=== PATIENT | female | born 1985 | race Asian ===

== ENCOUNTER 2019-09-04 07:35 | Inpatient (IN) | payer OTHER ==
[2019-09-04] MEDS ORDERED: AMPICILLIN - 2 GM in SODIUM CHLORIDE 100 ML IVPB ONE (08:50)
--- NOTE | 2019-09-04 08:57 | HP ---
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: Alzheimer's, CVA, Dementia, Migraine, Multiple Sclerosis, Peripheral Neuropathy, Parkinson's, Seizure, Syncope, TIA, Vertigo, Other Cardiovascular: No: AFIB, Aneurysm, Aortic Insufficiency, Aortic Stenosis, CAD, CHF, Deep Vein Thrombosis, HTN, Hyperlipdemia, CA, Mitral Insufficiency, Mitral Stenosis, Murmur, Pulmonary Hypertension, Other Pulmonary: No: Asthma, Bronchitis, Cancer, COPD, O2 Dependent, Pneumonia, Previously Intubated, Pulmonary Embolus, Pulmonary Fibrosis, Sleep Apnea, Other Gastrointestinal: No: Ascites, Cancer, Constipation, Crohn's Disease, Diverticulitis, Diverticulosis, Esophageal Varices, Gastritis, GERD, GI Bleed, Hemorrhoids, Hiatal Hernia, Inflamatory Bowel Disease, Irritable Bowel Disease, Pancreatitis, Peptic Ulcer Disease, Ulcerative Colitis, Other Hepatobiliary: No: Cirrhosis, Cholelithiasis, Cholecystitis, Choledocholithiasis , Hepatitis A, Hepatitis B, Hepatitis C, Other Renal/: No: Renal Failure, Renal Inusuff, BPH, Cancer, Hematuria, Hemodialysis , Neurogenic Bladder, Renal Calculi, UTI, Other Reproductive: No: Ectopic , Endometriosis, Fibroids, PID, Polycystic Ovary Syndrome, Postmenopausal, Other Heme/Onc: No: Anemia, B12 Deficiency, Bleeding Disorder, Cancer, Current Chemotherapy, Current Radiation Therapy, Hemochromatosis, Hypercoaguable State, Myeloproliferative Synd, Sickle Cell Disease, Sickle Cell Trait, Thrombocytopenia, Other Infectious Disease: No: AIDS, C-Diff, Herpes Zoster, HIV, MRSA, STD's, Tuberculosis, VREF, Other Psych: No: Addictions, Anxiety, Bipolar, Depression, Panic, Psychosis, Schizophrenia, Other Musculoskeletal: No: Bursitis, Chronic low back pain, Hemiparesis, Hemiplegia, Osteoarthritis, Paraplegia, Other Rheumatology: No: Fibromyalgia, Gout, Lupus, Rheumatoid Arthritis, Sarcoidosis, Vasculitis, Other ENT: No: Allergic Rhinitis, Sinusitis, Other Endocrine: No: Fady's Disease, [place]'s Disease, Diabetes Insipidus, Diabetes Mellitus, Hyperparathyroidism, Hyperthyroidism, Hypothyroidism, Osteopenia, SIADH, Other Dermatology: No: Basal Cell, Cellulitis, Eczema, Melanoma, Psoriasis, Squamous Cell, Other - Past Surgical History Past Surgical History: Yes: None. No: AAA Repair, AICD, Amputation, Appendectomy, Arthrosocopy, AV Fistula/Graft, Bariatric Surgery, Breast Biopsy, Bypass, CABG, Carotid Endarterectomy, Cataract Removal, Cholecystectomy, Colectomy, Colonoscopy, Colostomy, Craniotomy, , Cystectomy, Hernia Repair, Hysterectomy, Ileal Conduit, Ileosotomy, Joint Replacement, Kidney Transplant, Laminectomy, Liver Transplant, Mastectomy, Nephrectomy, Oopherectomy , Orchiectomy, Permanent Pacemaker, Prostatectomy, Splenectomy, Stent, Thoracotomy, TURP, Tonsillectomy, Tubal Ligation, Upper Endoscopy, Valve Replacement, Vasectomy, Vein Stripping/Ligation Hx Myomectomy: No Hx Transabdominal Cerclage: No - Advance Directives Advance Directives: Yes: Living Will - Smoking History Smoking history: Never smoked Have you smoked in the past 12 months: No - Alcohol/Substance Use Hx Alcohol Use: No History of Substance Use: reports: None - Social History Usual Living Arrangement: Yes: With Significant Other Do you think of yourself as: Straight/Heterosexual ADL: Independent History of Recent Travel: No Home Medications - Allergies Allergies/Adverse Reactions: Allergies Allergy/AdvReac Type Severity Reaction Status Date / Time No Known Allergies Allergy Verified 09/03/19 11:32 - Home Medications Home Medications: Ambulatory Orders Prenat 115/Iron Fum/Folic/Dss [ 19 Tablet] 1 each PO DAILY 09/03/19 Family Medical History Family History: Denies Review of Systems - Review of Systems Constitutional: reports: No Symptoms Eyes: reports: No Symptoms HENT: reports: No Symptoms Neck: reports: No Symptoms Cardiovascular: reports: No Symptoms Respiratory: reports: No Symptoms Gastrointestinal: reports: No Symptoms Genitourinary: reports: No Symptoms Breasts: reports: No Symptoms Reported Musculoskeletal: reports: No Symptoms Integumentary: reports: No Symptoms Neurological: reports: No Symptoms Endocrine: reports: No Symptoms Hematology/Lymphatic: reports: No Symptoms Psychiatric: reports: No Symptoms Physical Exam - Maternity Constitutional: Yes: Well Nourished, No Distress, Calm Eyes: Yes: WNL, Conjunctiva Clear, EOM Intact HENT: Yes: WNL, Atraumatic, Normocephalic Neck: Yes: WNL, Supple, Trachea Midline Cardiovascular: Yes: WNL, Regular Rate and Rhythm Lungs: Clear to auscultation Breast(s): Yes: WNL - Abdominal Exam/OB Fundal Height: 36 Number of Fetuses: Single Presentation: Vertex Contractions: Yes Regularity: Regular Intensity: Moderate Monitor Mode: External Heart Rate Location: [facility] Category: I Accelerations: Uniform Decelerations: None - Vaginal Exam/OB Vaginal Bleediing: Light Speculum Exam: No Dilatation (cm): 4 Effacement (%): 80 Amniotic Membrane Status: Bulging Presentation: Vertex/Position Station: -2 - Physical Exam Musculoskeletal: Yes: WNL Extremities: Yes: WNL Edema: Yes Edema: LUE: 1+, RUE: 1+, LLE: 1+, RLE: 1+ Integumentary: Yes: WNL Deep Tendon Reflex Grade: Normal +2 ...Motor Strength: WNL Psychiatric: Yes: WNL, Alert, Oriented Hemorrhage Risk Assessment - Risk Factors Medium Risk Factors: Yes: None High Risk Factors: Yes: None Risk Score: 1 Risk Level: Medium Risk Assessment/Plan for laboring at 35 3/7 weeks, unstoppable laboring , [facility] integrated logistics programs director is informed
[2019-09-04] MEDS ORDERED: DEXTROSE 5%-LACTATED RINGERS 1,000 ML IV SCH (09:00)
[2019-09-04 09:30] VITALS: BMI 32.0
[2019-09-04] MEDS ORDERED: ELECTROLYTE-148 SOLN 1,000 ML IV SCH ×2 (10:00→10:30)
[2019-09-04 10:09] LABS: BASO % 0.1 % (0-2.0); EOS % 0.5 % (0-4.5); HEMATOCRIT 38.2 % (32.4-45.2); HEMOGLOBIN 13.3 GM/dL (10.7-15.3); LYMPH % 13.4 % (8-40); MCH 33.4 pg (25.7-33.7); MCHC 34.7 g/dl (32.0-36.0); MEAN CELL VOLUME 96.2 fl (80-96); MEAN PLT VOLUME 8.8 fl (7.5-11.1); MONO % 6.7 % (3.8-10.2); NEUT % 79.3 % (42.8-82.8); PLATELET COUNT 175 K/MM3 (134-434); RBC 3.97 M/mm3 (3.60-5.2); RDW 12.9 % (11.6-15.6); WHITE BLOOD COUNT 9.2 K/mm3 (4.0-10.0)
[2019-09-04 10:25] LABS: INR 0.96 (0.83-1.09); PROTHROMBIN TIME (PATIENT) 11.3 SEC (9.7-13.0)
[2019-09-04 10:29] LABS: ACTIVATED PTT 27.6 SECONDS (25.2-36.5)
[2019-09-04] MEDS ORDERED: LIDO 2%/EPI 1:200000 PRESRVFRE (20 ML SDVIAL) ONE (10:43)
[2019-09-04] MEDS ORDERED: BUPIVACAINE HCL/PF 0.25% (2.5MG/ML) 10 ML VIAL ONE ×2 (10:43→17:27)
[2019-09-04 10:46] LABS: BLOOD UREA NITROGEN 4.4 mg/dL (7-18); CALCIUM 8.3 mg/dL (8.5-10.1); CREATININE 0.5 mg/dL (0.55-1.3); POTASSIUM 3.5 mmol/L (3.5-5.1)
[2019-09-04] MEDS ORDERED: FENTANYL/BUPIVACAINE/NS/PF - PCEA - 50 ML DISP.SYRIN EP ONE ×2 (11:03→15:46)
[2019-09-04] MEDS ORDERED: NALOXONE HCL 0.4 MG/ML VIAL IVPUSH PRN (11:10)
[2019-09-04] MEDS ORDERED: FENTANYL/BUPIVACAINE/NS/PF - PCEA - 50 ML DISP.SYRIN EP SCH (11:15)
[2019-09-04] MEDS ORDERED: AMPICILLIN SODIUM 1 GM VIAL ONE ×2 (11:55→16:23)
[2019-09-04] MEDS: AMPICILLIN - 1 GM in SODIUM CHLORIDE 100 ML IVPB SCH ×2 (12:06→16:30)
[2019-09-04] MEDS ORDERED: OXYTOCIN 20 UNITS in 0.9% NS 20 UNIT/1,000 ML INFUS.BAG IV ONE (17:24)
--- NOTE | 2019-09-04 17:58 | PN ---
Progress Note, Labor Vaginal Exam #2 Labor Exam Date: 09/04/19 Labor Exam Time: 17:45 Heart Rate (range): reactive Dilatation: 10 Effacement (%): 100 Amniotic Membrane Status: Bulging Presentation: Vertex/Position Station: -2 (AROM - clear.)
[2019-09-04] MEDS ORDERED: LIDOCAINE HCL 1% PRESERVATIVE FREE - 30ML VIAL ONE (18:06)
[2019-09-04] MEDS ORDERED: ACETAMINOPHEN 325 MG TABLET (FP) ONE (18:36)
[2019-09-04] MEDS ORDERED: IBUPROFEN 600 MG TABLET (FP) PO ONE (18:36)
[2019-09-04] MEDS: IBUPROFEN 600 MG TABLET (FP) PO PRN (18:40)
[2019-09-04] MEDS: ACETAMINOPHEN 325 MG TABLET (FP) PO PRN (18:40)
[2019-09-04] MEDS ORDERED: IBUPROFEN 800 MG/8 ML IJ IVPB ONE (18:43)
[2019-09-04] MEDS ORDERED: IBUPROFEN 800 MG/8 ML IJ IVPB PRN (18:47)
[2019-09-04] MEDS ORDERED: WITCH HAZEL 50% (TUCKS) 40 PAD/JAR PAD TP PRN (18:49)
[2019-09-04] MEDS ORDERED: oxyCODONE HCL 5 MG TABLET PO PRN (18:49)
[2019-09-04] MEDS ORDERED: METHYLERGONOVINE MALEATE 0.2 MG/1 ML AMP IM PRN (18:49)
[2019-09-04] MEDS ORDERED: BISACODYL 10 MG SUPP.RECT RC PRN (18:49)
[2019-09-04] MEDS ORDERED: BENZOCAINE 20% 57 GM BOTTLE TP PRN (18:49)
[2019-09-04] MEDS ORDERED: BENZOCAINE 28 GM HEMORRHOIDAL OINTMENT TP PRN (18:49)
[2019-09-04] MEDS ORDERED: OXYTOCIN 20 UNITS in 0.9% NS 20 UNIT/1,000 ML INFUS.BAG IV SCH (19:00)
--- NOTE | 2019-09-04 20:00 | PN ---
Progress Note (short form) - Note Progress Note: nst reactive, , 10 cm, pushing soon, no complications
--- NOTE | 2019-09-04 20:01 | PN ---
Delivery - Delivery Type of Anesthesia: Local, Epidural Episiotomy/Laceration: Right Mediolateral EBL (cc): 250 Delivery, Single - Stages of Labor Date 1st Stage Initiatied: 09/04/19 Time 1st Stage Initiated: 06:00 Date 2nd Stage Initiated: 09/04/19 Time 2nd Stage Initiated: 17:50 Date of Delivery: 09/04/19 Time of Delivery: 17:57 Time Placenta Delivered: 18:10 - Condition of Button Spindler/Epidemiology Internship Present: No Infant Gender: Male Weight: 2.722 kg Position: Left, OA Total Hours ROM (Hrs/Mins): 0hrs 25min - 1 Minute Total Score: 9 5 Minutes Total Score: 9 - [place] Feeding Plan Initial Plan: Exclusive throughout hospitalization Remarks - Remarks Remarks: no complications,
[2019-09-05] MEDS: IBUPROFEN 600 MG TABLET (FP) PO PRN ×2 (06:27→21:42)
[2019-09-05] MEDS: ACETAMINOPHEN 325 MG TABLET (FP) PO PRN ×2 (06:28→21:43)
--- NOTE | 2019-09-05 07:22 | PN ---
Post Progress Note Post Day: 1 Type of Delivery: Vital Signs: Vital Signs Temperature 97.8 F 09/05/19 05:42 Pulse Rate 59 L 09/05/19 05:42 Respiratory Rate 20 09/05/19 05:42 Blood Pressure 105/60 09/05/19 05:42 O2 Sat by Pulse Oximetry (%) 100 09/04/19 19:30 Breast Exam: Yes: Soft Uterus: Yes: Fundus Firm, Fundus below umbilicus, Non-tender Abdomen/GI: Yes: Abdomen soft, Passing flatus, Tolerating PO Lochia: Yes: Serosa Lochia, amount: Small Extremities: Yes: Calves non-tender Perineum: Yes: Episiotomy Activity: Ambulating (dc pt home tomorrow ) - Labs Labs: CBC WBC 9.2 K/mm3 (4.0-10.0) 09/04/19 09:45 RBC 3.97 M/mm3 (3.60-5.2) 09/04/19 09:45 Hgb 13.3 GM/dL (10.7-15.3) 09/04/19 09:45 Hct 38.2 % (32.4-45.2) 09/04/19 09:45 MCV 96.2 fl (80-96) H 09/04/19 09:45 MCH 33.4 pg (25.7-33.7) 09/04/19 09:45 MCHC 34.7 g/dl (32.0-36.0) 09/04/19 09:45 RDW 12.9 % (11.6-15.6) 09/04/19 09:45 Plt Count 175 K/MM3 (134-434) 09/04/19 09:45 MPV 8.8 fl (7.5-11.1) 09/04/19 09:45 Absolute Neuts (auto) 7.3 K/mm3 (1.5-8.0) 09/04/19 09:45 Neutrophils % 79.3 % (42.8-82.8) 09/04/19 09:45 Lymphocytes % 13.4 % (8-40) 09/04/19 09:45 Monocytes % 6.7 % (3.8-10.2) 09/04/19 09:45 Eosinophils % 0.5 % (0-4.5) 09/04/19 09:45 Basophils % 0.1 % (0-2.0) 09/04/19 09:45 Nucleated RBC % 0 % (0-0) 09/04/19 09:45
--- NOTE | 2019-09-05 07:24 | DS ---
Physical Exam-IMPLEMENTATION MANAGER Vital Signs: Vital Signs Temperature 97.8 F 09/05/19 05:42 Pulse Rate 59 L 09/05/19 05:42 Respiratory Rate 20 09/05/19 05:42 Blood Pressure 105/60 09/05/19 05:42 O2 Sat by Pulse Oximetry (%) 100 09/04/19 19:30 Constitutional: Yes: Well Nourished, No Distress, Calm Eyes: Yes: WNL, Conjunctiva Clear, EOM Intact HENT: Yes: WNL, Atraumatic, Normocephalic Neck: Yes: WNL, Supple, Trachea Midline Cardiovascular: Yes: WNL, Regular Rate and Rhythm Respiratory: Yes: WNL, Regular, CTA Bilaterally Gastrointestinal: Yes: WNL, Normal Bowel Sounds, Soft ...Rectal Exam: Yes: WNL Renal/: Yes: WNL Pelvis: Yes: WNL External Genitalia: Yes: Normal Internal Exam Deferred: Yes Vaginal Exam: Yes: Normal Cervix: Yes: Normal Uterus: Yes: Normal Adnexa: Normal: Bilateral ....Post : Yes: Uterus firm, Uterus non-tender Breast(s): Yes: WNL Musculoskeletal: Yes: WNL Extremities: Yes: WNL Edema: Yes Edema: LUE: 1+, RUE: 1+, LLE: 1+, RLE: 1+ Integumentary: Yes: WNL Wound/Incision: Yes: Clean/Dry, Well Approximated Neurological: Yes: WNL, Alert, Oriented ...Motor Strength: WNL Psychiatric: Yes: WNL, Alert, Oriented Labs: CBC, BMP 09/04/19 09:45 09/04/19 09:45 Delivery - Delivery Type of Anesthesia: Local, Epidural Episiotomy/Laceration: Right Mediolateral EBL (cc): 250 Delivery, Single - Stages of Labor Date 1st Stage Initiatied: 09/04/19 Time 1st Stage Initiated: 06:00 Date 2nd Stage Initiated: 09/04/19 Time 2nd Stage Initiated: 17:50 Date of Delivery: 09/04/19 Time of Delivery: 17:57 Time Placenta Delivered: 18:10 - Condition of Emergency Management System Director/Product Examiner Present: No Infant Gender: Male Weight: 2.722 kg Position: Left, OA Total Hours ROM (Hrs/Mins): 0hrs 25min - 1 Minute Total Score: 9 5 Minutes Total Score: 9 - [place] Feeding Plan Initial Plan: Exclusive throughout hospitalization Discharge Summary Problems reviewed: Yes Reason For Visit: INDUCTION OF LABOR Procedures: Principal: Hospital Course: uneventful Health Concerns: none Plan of Treatment: oob as much as possible Condition: Good - Instructions Diet, Activity, Other Instructions: Physical activity Resume your normal everyday activity as tolerated no heavy lifting or exercise until seen by your surgeon. You may walk unlimited diane of and climb stairs. You may resume driving the car when you feel safe and comfortable behind the wheel. No sexual activity as instructed. Wound care If you have a bandage, leave it on, and keep dry for 48-72 hours. After that time discard the outer bandage. If they are tapes on the skin under the out of bandage leave them in place. They will peel off in the next 7 to 10 days. Do Not Peel them off. You may shower the day after surgery. If there are tapes present on the skin, you may shower over them. Diet There are no dietary restrictions. Eat healthy, high-fiber foods. Drink 6 to 8 glasses of liquid each day. This will assist in keeping your bowels are regular. Pain management You may take Tylenol or acetaminophen or Ibuprofen (for example, Motrin, Advil etc.) from my pain prescription medication is ordered should be taken as prescribed for moderate to severe pain. Call MD for any of the following: call dr steven for 6 weeks appointment Severe pain not relieved by medication Fever of 101 or higher Excessive bleeding or drainage on dressing Inability to urinate Disposition: HOME - Home Medications Comprehensive Discharge Medication List: Ambulatory Orders Prenat 115/Iron Fum/Folic/Dss [ 19 Tablet] 1 each PO DAILY 09/03/19 Prescription Drug Monitoring Program (I-STOP) results: I-STOP reviewed and no issues identified
[2019-09-05 08:20] LABS: BASO % 0.2 % (0-2.0); EOS % 1.4 % (0-4.5); HEMATOCRIT 30.2 % (32.4-45.2); HEMOGLOBIN 10.5 GM/dL (10.7-15.3); MCH 33.5 pg (25.7-33.7); MCHC 34.7 g/dl (32.0-36.0); MEAN CELL VOLUME 96.8 fl (80-96); MEAN PLT VOLUME 8.7 fl (7.5-11.1); MONO % 8.5 % (3.8-10.2); NEUT % 70.9 % (42.8-82.8); PLATELET COUNT 132 K/MM3 (134-434); RBC 3.12 M/mm3 (3.60-5.2); RDW 13.3 % (11.6-15.6); WHITE BLOOD COUNT 7.4 K/mm3 (4.0-10.0)
[2019-09-05] MEDS ORDERED: SENNOSIDES/DOCUSATE COMBO (SENNA PLUS) TABLET (UD) PO PRN (22:00)
[2019-09-06 11:05] VITALS: BP 123/67; PULSE 64; TEMP 98.1
--- NOTE | 2019-09-06 17:17 | PN ---
Post Progress Note Post Day: 2 Type of Delivery: Vital Signs: Vital Signs Temperature 98.1 F 09/06/19 10:00 Pulse Rate 64 09/06/19 10:00 Respiratory Rate 20 09/06/19 10:00 Blood Pressure 123/67 09/06/19 10:00 O2 Sat by Pulse Oximetry (%) 100 09/04/19 19:30 Breast Exam: Yes: Soft Uterus: Yes: Fundus Firm, Fundus below umbilicus, Non-tender (doing home today ) Incision: Yes: Dressing dry and intact Abdomen/GI: Yes: Abdomen soft, Passing flatus, Tolerating PO Lochia: Yes: Serosa Lochia, amount: Small Extremities: Yes: Calves non-tender Perineum: Yes: Intact Activity: Ambulating - Labs Labs: CBC WBC 7.4 K/mm3 (4.0-10.0) 09/05/19 07:15 RBC 3.12 M/mm3 (3.60-5.2) L 09/05/19 07:15 Hgb 10.5 GM/dL (10.7-15.3) L 09/05/19 07:15 Hct 30.2 % (32.4-45.2) L D 09/05/19 07:15 MCV 96.8 fl (80-96) H 09/05/19 07:15 MCH 33.5 pg (25.7-33.7) 09/05/19 07:15 MCHC 34.7 g/dl (32.0-36.0) 09/05/19 07:15 RDW 13.3 % (11.6-15.6) 09/05/19 07:15 Plt Count 132 K/MM3 (134-434) L D 09/05/19 07:15 MPV 8.7 fl (7.5-11.1) 09/05/19 07:15 Absolute Neuts (auto) 5.3 K/mm3 (1.5-8.0) 09/05/19 07:15 Neutrophils % 70.9 % (42.8-82.8) 09/05/19 07:15 Lymphocytes % 19.0 % (8-40) D 09/05/19 07:15 Monocytes % 8.5 % (3.8-10.2) 09/05/19 07:15 Eosinophils % 1.4 % (0-4.5) D 09/05/19 07:15 Basophils % 0.2 % (0-2.0) 09/05/19 07:15 Nucleated RBC % 0 % (0-0) 09/05/19 07:15
== END 2019-09-06 16:53 | disposition home or self-care (01) | DRG 807 ==
LOC: JLDR 07:35 → J3W 22:00
PROVIDERS: ADMIT Obstetrics & Gynecology; ATTEND Obstetrics & Gynecology
PROC: 10E0XZZ Delivery of Products of Conception, External Approach (ICD-10-PCS; principal; 2019-09-04)
PROC: 0W8NXZZ Division of Female Perineum, External Approach (ICD-10-PCS; 2019-09-04)
DX: O60.14X0 Preterm labor third trimester with preterm delivery third trimester, not applicable or unspecified (principal); Z3A.35 35 weeks gestation of pregnancy; Z37.0 Single live birth
CPT/HCPCS: 36415; 59409; 80048; 85025; 85610; 85730; 86593; 86850; 86900; 86901; 87389